=== PATIENT | female | born 1930 | race Caucasian/White ===

== ENCOUNTER 2018-03-31 17:40 | Emergency (ER) | payer OTHER, MEDICARE ==
[~2018-03-31] VITALS: Ht 170.2 cm; Wt 82.0 kg
[2018-03-31 18:30] LABS: HEMOGLOBIN 11.6 G/DL (11.9-15.5); MCH 30.1 PG (29.0-34.0); MCHC 33.1 G/DL (30.0-36.0); MCV 90.7 FL (83-99); PLATELET COUNT 214 K/uL (156-360); RBC DIS.WIDTH-CV 14.2 % (11.8-14.6); RBC DIS.WIDTH-SD 46.9 % (39-53); RED BLOOD COUNT 3.86 M/uL (3.80-5.20); WHITE BLOOD COUNT 12.1 K/uL (4.1-10.2)
[2018-03-31 18:39] LABS: CHLORIDE 108 mEq/L (99-109); POTASSIUM 4.1 mEq/L (3.7-5.4); SODIUM 141 mEq/L (136-147)
[2018-03-31 18:41] LABS: GLUCOSE 119 mg/dL (70-99)
[2018-03-31 18:44] LABS: CREATININE 1.1 mg/dL (0.6-1.3); GFR ESTIMATE (CALCULATED) 50 mL/min/
[2018-03-31 18:45] LABS: UREA NITROGEN (BUN) 21 mg/dL (9-23)
[2018-03-31 18:53] LABS: INTER. NORMALIZED RATIO 2.6
[2018-03-31 18:56] LABS: PTT 31.9 SEC (25-37)
[2018-03-31 20:36] VITALS: BP 134/76
== END 2018-03-31 20:41 | disposition home or self-care (01) ==
LOC: EME 17:40
PROVIDERS: Emergency Medicine
DX: S40.012A Contusion of left shoulder, initial encounter (principal); W20.8XXA Other cause of strike by thrown, projected or falling object, initial encounter; W18.30XA Fall on same level, unspecified, initial encounter; Y92.481 Parking lot as the place of occurrence of the external cause; I48.91 Unspecified atrial fibrillation; I10 Essential (primary) hypertension; E11.9 Type 2 diabetes mellitus without complications; Z85.9 Personal history of malignant neoplasm, unspecified; Z79.01 Long term (current) use of anticoagulants; Z88.0 Allergy status to penicillin
CPT/HCPCS: 70450; 73000; 73030; 80048; 85027; 85610; 85730; 99281; 99284